=== PATIENT | male | born 1940 | race Caucasian/White ===

== ENCOUNTER 2019-12-06 09:16 | Outpatient (CLI) | payer MEDICARE, SELFPAY ==
[2019-12-06 10:46] LABS: Prostate Specific Antigen 1.3 ng/mL (< OR = 4.0)
== END 2019-12-06 09:17 | disposition home or self-care (01) ==
PROVIDERS: PCP Internal Medicine; Visit Provider Urology
DX: C61 Malignant neoplasm of prostate (principal)
CPT/HCPCS: 36415; 84153

== ENCOUNTER 2020-01-16 12:04 | Outpatient (CLI) | payer MEDICARE, SELFPAY ==
--- NOTE | ~2020-01-16 | XR_ITS ---
EXAMINATION: XR ankle LT min 3V DATE: 01/16/2020 12:33 INDICATION: Left ankle pain post injury TECHNIQUE: Anteroposterior, oblique, mortise, and lateral views of the left ankle were obtained. COMPARISON: None. FINDINGS: Alignment is normal. No fracture. Heterotopic ossicle at the tip of the medial malleolus likely sequ john of chronic deltoid ligament injury. Moderate-sized plantar calcaneal spur and small enthesopathic ossicle at the distal Achilles tendon. Joint spaces are well maintained. Soft tissue swelling about the ankle most prominent over the lateral malleolus. Left ankle joint effusion. IMPRESSION: 1. Left ankle joint effusion and lateral side predominant soft tissue swelling without acute osseous abnormality. Reviewed, dictated and finalized at location B.
== END 2020-01-16 12:05 | disposition home or self-care (01) ==
LOC: CHSIMG 12:06
PROVIDERS: PCP Internal Medicine; Visit Provider Internal Medicine
DX: M25.572 Pain in left ankle and joints of left foot (principal); M25.472 Effusion, left ankle
CPT/HCPCS: 73610

== ENCOUNTER 2020-08-26 05:24 | Emergency (ER) | payer MEDICARE, SELFPAY ==
--- NOTE | ~2020-08-26 | CT_ITS ---
EXAMINATION: CT abdomen pelvis wo con EXAM DATE: 08/26/2020 07:08 INDICATION: Right flank pain. TECHNIQUE: Spiral CT of the abdomen and pelvis was performed without contrast. Axial, coronal and sag ittal images were reviewed. The dose-length product (DLP) for this examination was 1521.15 mGy-cm. The exposure was tailored according to patient size (auto mA exposure control), and iterative reconst ruction (ASIR) was used as additional dose reduction technique. There is no prior study for comparis on. FINDINGS: There is no nephrolithiasis or hydronephrosis. Prostate unremarkable. The bladder is unr emarkable. The liver, spleen, adrenal glands and pancreas are unremarkable. Gallbladder not identif ied, patient likely has had cholecystectomy. There is no retroperitoneal or pelvic lymphadenopathy. There is mild to moderate scattered arteriosclerotic disease. Several supraumbilical fat-containing hernias in paracentral locations, largest toward the right measuring up to 6.5 cm. No inflammation w ithin these. The appendix is normal. There is extensive sigmoid predominant colonic diverticulosis. There is no a djacent inflammatory change to suggest diverticulitis. There is small to moderate-sized gastroesophag eal hiatal hernia. There is expected amount of colonic stool. No free intraperitoneal gas. The h eart is normal in size. There are no pericardial or pleural effusions. The lung bases are unremarka ble. There are no osteoblastic or osteolytic lesions identified. Sternotomy wires. IMPRESSION: 1. No nephrolithiasis, hydronephrosis or acute intra-abdominal findings. 2. Small to moderate-sized hiatal hernia. 3. Supraumbilical fat-containing hernias. 4. Colonic diverticulosis Reviewed, dictated and finalized at location A.
[2020-08-26 05:59] VITALS: BP 125/46; PULSE 61; RESP 20; TEMP 36.1; O2SAT 91
--- NOTE | 2020-08-26 06:25 | ED.BACK ---
HPI - Back Pain/Injury General Chief Complaint: Back Pain/Injury Stated Complaint: Right Back Pain Time Seen by Provider: 08/26/20 06:44 Source: patient Mode of arrival: ambulatory Limitations: no limitations History of Present Illness HPI Narrative: this is a 80-year-old gentleman that presents with some right flank pain, more spasm like pain but it is sharp in nature and radiating into his right groin and right leg, has a history of prostate cancer hypertension currently not having any dysuria no hematuria no nausea vomiting pain level is about an 8/10 with no diarrhea or constipation. MD elicited complaint: back pain Pertinent past history: prior back pain Onset (ago): hour(s) Timing: constant Severity: moderate Pain scale (0-10): 8 Similar Symptoms Previously: Yes Quality: sharp and spasming Location: right flank Radiation: groin Exacerbating factors: movement Relieving factors: immobilization Related Data Home Medications Medication Instructions Recorded Confirmed atorvastatin 80 mg PO DAILY 08/26/20 08/26/20 lisinopril 10 mg PO DAILY 08/26/20 08/26/20 metoprolol tartrate 25 mg PO DAILY 08/26/20 08/26/20 Allergies Allergy/AdvReac Type Severity Reaction Status Date / Time No Known Allergies Allergy Verified 08/26/20 06:46 Review of Systems Review of Systems: All systems reviewed & are unremarkable except as noted in HPI and below PMFSH Past Medical History Medical History (Updated 08/27/20 @ 00:00 by Background Dapam) HTN (hypertension) Prostate cancer Family History Family History (Updated 08/26/20 @ 22:56 by Bolivar Parekh MD) Other Family history non-contributory Social History Social History (Updated 08/26/20 @ 22:56 by Bolivar Parekh MD) Living arrangements: alone Additional occupation/education comments: 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 Exam Const: General: no acute distress and alert Orientation/consciousness: patient oriented x3 HENMT: Head: normal to inspection Eyes: Conjunctivae: conjunctivae normal Pupils: Equal, round and reactive pupils present Neck: Neck: normal visual inspection, no lymphadenopathy and no meningeal signs Chest: Chest palpation & inspection: normal inspection of the chest Resp: Effort & Inspection: normal respiratory effort Auscultation: clear to auscultation bilaterally Cardio: Rate: regular rate Rhythm: regular rhythm GI: Auscultation: normal bowel sounds : Testes: Testes normal ( slow stream) Urinary Catheter: Urinary Catheter: urine clear Back/Spine/Pelvis: Back: CVA tenderness ( right flank pain) Skin: General skin exam: normal color Rashes: no rashes Neuro: General: patient oriented x3 and moves all extremities Extrem: General: normal to inspection and no pedal edema Psych: Appearance: grossly normal Mental Status: mental status grossly normal Affect: normal affect Course Course Emergency Course: patient received IV Toradol and awaiting blood work and CT scan without contrast of abdomen pelvis. Vital Signs Vital signs: Vital Signs Temperature 36.1 C L 08/26/20 05:59 Pulse Rate 61 08/26/20 05:59 Respiratory Rate 20 08/26/20 05:59 Blood Pressure 125/46 L 08/26/20 05:59 Pulse Oximetry 91 08/26/20 05:59 Temperature 36.1 C L 08/26/20 05:59 Pulse Rate 63 08/26/20 10:50 Respiratory Rate 18 08/26/20 10:50 Blood Pressure 171/59 H 08/26/20 10:50 Pulse Oximetry 95 08/26/20 10:50 MDM - Back Pain/Injury Lab Data Result diagrams: 08/26/20 06:26 08/26/20 06:26 Labs: Lab Results 08/26/20 08/26/20 08/26/20 Range/Units 06:26 06:26 08:50 WBC 8.0 (4.8-10.8) K/mm3 RBC 4.30 L (4.70-6.10) M/mm3 Hgb 13.4 (12.4-15.3) g/dL Hct 40.8 (37.0-46.0) % MCV 94.9 (78.0-102.0) fL MCH 31.2 H (27.0-31.0) pg MCHC 32.8 (32.0-36.0) g/dL RDW 13.9 (11.6-14.4) % Plt Count 248 (150-420) K/mm3 MPV 10.7 (8.7-11.0) fl Immat
[2020-08-26] MEDS: KETOROLAC 30 MG/ML VIAL (*BKC) IV PUSH (06:35)
[2020-08-26 06:36] LABS: Basophils Absolute Auto 0.05 K/mm3 (0.00-0.10); Basophils Percent Auto 0.6 % (0.0-1.0); Eosinophils Absolute Auto 0.47 K/mm3 (0.02-0.50); Eosinophils Percent Auto 5.9 % (1.0-6.0); Hematocrit 40.8 % (37.0-46.0); Hemoglobin 13.4 g/dL (12.4-15.3); Immature Granulocyte Absolute 0.02 K/mm3 (0.00-0.00); Immature Granulocyte Percent A 0.3 % (0.0-0.0); Lymphocytes Absolute Auto 1.86 K/mm3 (1.10-4.50); Lymphocytes Percent Auto 23.3 % (18.0-42.0); Mean Corpuscular HGB Conc 32.8 g/dL (32.0-36.0); Mean Corpuscular Hemoglobin 31.2 pg (27.0-31.0); Mean Corpuscular Volume 94.9 fL (78.0-102.0); Mean Platelet Volume 10.7 fl (8.7-11.0); Monocytes Absolute Auto 0.65 K/mm3 (0.10-0.90); Monocytes Percent Auto 8.1 % (2.0-11.0); Neutrophils Absolute Auto 4.9 K/mm3 (1.7-7.2); Neutrophils Percent Auto 61.8 % (50.0-70.0); Platelet Count Result 248 K/mm3 (150-420); Red Cell Distribution Width 13.9 % (11.6-14.4)
[2020-08-26] MEDS: SODIUM CHLORIDE 0.9% IV 500 ML 999 ML IV CONT (06:44)
[2020-08-26 06:49] LABS: Alanine Aminotransferase 29 U/L (16-63); Albumin Level 3.3 g/dL (3.4-5.0); Alkaline Phosphatase 105 U/L (46-116); Anion Gap 7 mmol/L (8-16); Aspartate Amino Transferase 19 U/L (15-37); Bilirubin,Total 0.4 mg/dL (0.00-1.00); Blood Urea Nitrogen 27 mg/dL (7-18); Calcium 9.3 mg/dL (8.5-10.1); Carbon Dioxide 30 mmol/L (21-32); Chloride 103 mmol/L (98-108); Estimated CRCL calculation 65 ml/min; Estimated Glomerular Filt Rate 57; Glucose 113 mg/dL (70-99); Osmolality Calculated 296 mOsm/kg (285-295); Potassium 4.8 mmol/L (3.5-5.1); Sodium 140 mmol/L (136-145); Total Protein 6.9 g/dL (6.4-8.2)
[2020-08-26] MEDS: BACLOFEN 10 MG TABLET 20 MG PO (07:19)
[2020-08-26 08:58] LABS: Add Urine Microscopic? NO; Appearance Urine Clear (Clear); Bilirubin Urine Negative (Negative); Blood Urine Negative (Negative); Color Urine Yellow (Yellow); Glucose Urine UA Negative (Negative); Ketones Urine Negative (Negative); Leukocyte Esterase Ur Negative LEU/UL (Negative); Nitrate Urine Negative (Negative); Protein Urine Negative (Negative); Urobilinogen Urine 0.2 mg/dL (0.2-1.0)
[2020-08-26] MEDS: HYDROcodone/acetaminophen (*CRX) 7.5-325 MG TABLET 1 TAB PO (09:00)
[2020-08-26] MEDS: DEXAMETHASONE 4 MG TABLET 12 MG PO (09:00)
--- NOTE | 2020-08-26 10:33 | ED.BACK ---
HPI - Back Pain/Injury General Chief Complaint: Back Pain/Injury Stated Complaint: Right Back Pain Time Seen by Provider: 08/26/20 06:44 Source: patient Mode of arrival: ambulatory Limitations: no limitations History of Present Illness HPI Narrative: Patient comes in stating he has had back pain which has affected the right side more severely, with spasms in right leg. He points to SI joint, as a source of pain and his right flank area. He denies fever and chills. Pain in right flank has been moderately severe, with sharp pain, ongoing for the past several days, but worse today. This has not been relieved by measures taken at home. MD elicited complaint: back pain Pertinent past history: prior back pain Onset (ago): day(s) Timing: constant Severity: moderate Similar Symptoms Previously: Yes Quality: sharp and spasming Exacerbating factors: movement Relieving factors: immobilization Associated symptoms: denies other symptoms Related Data Home Medications Medication Instructions Recorded Confirmed atorvastatin 80 mg PO DAILY 08/26/20 08/26/20 lisinopril 10 mg PO DAILY 08/26/20 08/26/20 metoprolol tartrate 25 mg PO DAILY 08/26/20 08/26/20 Allergies Allergy/AdvReac Type Severity Reaction Status Date / Time No Known Allergies Allergy Verified 08/26/20 06:46 Review of Systems Constitutional: Constitutional: Reports no additional constitutional complaints Eyes: Eyes: Reports no additional eye complaints ENT: Reports system reviewed and no additional complaints, except as documented Cardiovascular: Cardiovascular: Reports no additional cardiovascular complaints Respiratory: Respiratory: Reports no additional respiratory complaints Gastrointestinal: Gastrointestinal: Reports no additional gastrointestinal complaints Genitourinary: Genitourinary: Reports no additional male genitourinary complaints Musculoskeletal: Musculoskeletal: Reports no additional musculoskeletal complaints Integumentary/Breasts: Skin/Breast: Reports system reviewed and no additional complaints, except as docu Neurologic: Reports system reviewed and no additional complaints, except as documented Psychiatric: Psychiatric: Reports no additional psychiatric complaints Endocrine: Endocrine: Reports no additional endocrine complaints Hematologic/Lymphatic: Hematologic/Lymphatic: Reports no additional hematologic/lymphatic complaints Allergic/Immunologic: Allergic/Immunologic: Reports no additional allergic/immunologic complaints [facility] Past Medical History Medical History (Updated 08/26/20 @ 22:57 by Bolivar Parekh MD) HTN (hypertension) Prostate cancer Family History Family History (Updated 06/06/21 @ 22:56 by Bolivar Parekh MD) Other Family history non-contributory Social History Social History (Updated 08/26/20 @ 22:56 by Bolivar Parekh MD) Living arrangements: alone Additional occupation/education comments: 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 Exam Const: General: no acute distress and alert Orientation/consciousness: patient oriented x3 HENMT: Head: normal to inspection Ears: external ears normal General nose exam: Normal external nose present Mouth: Yes Normal oral and palatal mucosa present Throat: posterior oropharynx normal Eyes: Conjunctivae: conjunctivae normal Neck: Neck: normal visual inspection Chest: Chest palpation & inspection: normal inspection of the chest Resp: Effort & Inspection: normal respiratory effort Auscultation: clear to auscultation bilaterally Cardio: Rate: regular rate Rhythm: regular rhythm GI: GI Palp: Yes Soft to palpation (nontender) Back/Spine/Pelvis: Back: no CVA tenderness Skin: General skin exam: normal color Neuro: General: patient oriented x3 and moves all extremities Extrem: General: normal to inspection Psych: Appearance: grossly normal Mental Status: mental status grossly normal Thought content: Yes Normal thought content present Course Cou
[2020-08-26 10:50] VITALS: BP 171/59; PULSE 63; RESP 18; O2SAT 95
== END 2020-08-26 10:57 | disposition home or self-care (01) ==
PROVIDERS: Emergency Medicine; Emergency Provider Emergency Medicine; PCP Internal Medicine
DX: M54.41 Lumbago with sciatica, right side (principal); I10 Essential (primary) hypertension; Z85.46 Personal history of malignant neoplasm of prostate
CPT/HCPCS: 36415; 74176; 80053; 81003; 85025; 96361; 96374; 99283; 99284; A9270; J1885; J7040; J8540

== ENCOUNTER 2020-09-03 10:24 | Outpatient (CLI) | payer MEDICARE, SELFPAY ==
--- NOTE | ~2020-09-03 | XR_ITS ---
XR lumbar spine 2-3V DATE: 09/03/2020 10:49 INDICATION: Back pain for 2 weeks TECHNIQUE: AP, lateral, coned lateral lumbosacral views COMPARISON: 06/14/2018 lumbar spine FINDINGS: There is prominent degenerative spurring throughout the included lower thoracic and lumbar spine. There is severe degenerative disc disease at L1-2, L2-3 and L3-4. There is grade 1 anterolisthesis at L5-S1 apparently due to degenerative change at the apophyseal kristi nts. No fracture or bone destruction is evident. Is extensive calcification of the abdominal aorta and iliac arteries without obvious evidence of aneu rysm. IMPRESSION: Extensive lower thoracic and lumbar spondylosis Grade 1 anterolisthesis at L5-S1 due to degenerative change at the apophyseal joints Reviewed, dictated and finalized at location A. IMPRESSION: Extensive lower thoracic and lumbar spondylosis Grade 1 anterolisthesis at L5-S1 due to degenerative change at the apophyseal j nubia
== END 2020-09-03 10:25 | disposition home or self-care (01) ==
LOC: CHSIMG 10:26
PROVIDERS: PCP Internal Medicine; Visit Provider Internal Medicine
DX: M54.9 Dorsalgia, unspecified (principal)
CPT/HCPCS: 72100

== ENCOUNTER → 2020-12-13 13:26 | Outpatient (CLI) | payer MEDICARE, SELFPAY ==
--- NOTE | ~2020-12-13 | MR_ITS ---
EXAMINATION: MR lumbar spine wo con DATE: 12/13/2020 14:15 INDICATION: Low back pain. TECHNIQUE: Magnetic resonance imaging (MRI) of the lumbar spine was performed without intravenous con trast. Sequences included sagittal T2-weighted FSE, sagittal T2-weighted FS FSE, sagittal T1-weighted FSE, and axial T2-weighted FSE. COMPARISON: Lumbar spine radiograph 09/03/2020 FINDINGS: There is 3 degrees levocurvature of lumbar spine. There is 4 mm retrolisthesis of L2 on L3 and 6 mm retrolisthesis of L3 on L4. There is 6 mm anterolisthesis of L5 on S1. There is mild chronic anterior wedging of T11, T12, and L1 vertebral bodies. There is mildly decreased disc height at L1-L 2, moderately decreased disc height at L2-L3 and L3-L4, and mildly decreased disc at L5-S1 with endpl ate remodeling. The distal spinal cord signal intensity is normal. The conus medullaris is at L1. The following disc levels are specifically discussed: L1-L2: The disc is bulging and has an annular fissure. There is severe bilateral facet joint osteoart hritis. There is mild right neural foraminal stenosis. There is mild central canal stenosis. L2-L3: The disc is bulging and has an annular fissure. There is moderate bilateral facet joint osteoa rthritis. There is moderate right and mild left neural foraminal stenosis. There is mild central geovany l stenosis. L3-L4: There is bulging and has an annular fissure. There is severe bilateral facet joint osteoarthri tis. There is moderate right and severe left neural foraminal stenosis. There is mild central canal s tenosis. L4-L5: The disc is bulging. There is severe bilateral facet joint osteoarthritis. There is mild bilat eral neural foraminal stenosis. There is mild central canal stenosis. L5-S1: The disc is bulging and has an annular fissure. There is severe bilateral facet joint osteoart hritis. There is moderate right and mild left neural foraminal stenosis. There is mild central canal stenosis. IMPRESSION: 1. Severe lumbar spondylosis. Reviewed, dictated and finalized at location A.
== END ==
PROVIDERS: PCP Internal Medicine; Visit Provider Internal Medicine
DX: M54.5 Low back pain (principal); M47.816 Spondylosis without myelopathy or radiculopathy, lumbar region
CPT/HCPCS: 72148

== ENCOUNTER 2023-04-24 11:53 | Emergency (ER) | payer MEDICARE, SELFPAY ==
[2023-04-24] VITALS (25 sets, daily range): BP systolic 134–186; BP diastolic 70–95; PULSE 63–73; RESP 20; TEMP 36.6; O2SAT 90–100
--- NOTE | ~2023-04-24 | CT_ITS ---
EXAMINATION: CT brain wo con DATE: 04/24/2023 12:25 INDICATION: Dizziness TECHNIQUE: Computed tomography (CT) of the head was performed without intravenous contrast. The mA wa s adjusted according to patient size. Iterative reconstruction technique was employed. Exam dose: 68 1.00 mGy-cm total exam DLP. COMPARISON: None FINDINGS: Bilateral vertebral artery calcifications and prominent bilateral carotid siphon internal c arotid artery calcifications. Very small right cerebellar hemispheric old infarct. No intracranial mass lesion or hemorrhage or cerebrovascular accident, midline shift or mass effect i s detected. Normal ventricular size. No subdural or epidural hematoma is detected. No fracture or bone destruction of the cranial vault. The mastoid air cells and included paranasal si nuses are unremarkable except for mucoperiosteal thickening at the right frontoethmoid area and patch y opacification of right ethmoid air cells. IMPRESSION: Cerebral atherosclerosis Very small right cerebellar hemispheric infarct Right frontoethmoid sinus disease Reviewed, dictated and finalized at Location A. Reviewed, dictated and finalized at location B. 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
--- NOTE | ~2023-04-24 | CT_ITS ---
EXAMINATION: CTA brain carotid DATE: 04/24/2023 14:36 INDICATION: Dizziness. TECHNIQUE: Computed tomographic angiography (CTA) of the head was performed with 100 mL Omnipaque-350 intravenous contrast. CTA of the neck was performed with intravenous contrast. Automated exposure co ntrol and iterative reconstruction technique were employed. The dose-length product was 1219.10 mGy-c m. Maximum intensity projection and volume rendered 3D-reconstructions were created by the [employer]apadi st on a separate workstation. COMPARISON: Head CT 04/24/2023 FINDINGS: HEAD CTA: There is no intracranial hemorrhage, acute infarction, or abnormal intracranial mass lesion . The ventricles are normal in size. There is mucosal thickening in the paranasal sinuses. The orbits are normal. The mastoid air cells are normal. The vertebral arteries are codominant. There is no sig nificant stenosis of basilar artery or the posterior cerebral arteries. The posterior communicating a rteries are normal. There is no significant stenosis of the intracranial internal carotid arteries or anterior or middle cerebral arteries. Anterior communicating artery is normal. There is no aneurysm. NECK CTA: Calcified mediastinal lymph nodes are consistent with old granulomatous disease. There are no pathologically enlarged lymph nodes. 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 There is plaque in the proximal internal carotid arteries. There is 33% stenosis of the proximal right internal carotid artery relative to normal distal artery lumen diameter (NASCET criteria). There is 17% stenosis of the proximal left internal carotid artery relative to normal dis marie artery lumen diameter. There is severe cervical spondylosis. IMPRESSION: 1. Normal brain. 2. No aneurysm or significant intracranial arterial stenosis. 3. 33% stenosis of the proximal right internal carotid artery relative to normal distal artery lumen diameter (NASCET criteria). 4. 17% stenosis of the proximal left internal carotid artery relative to normal distal artery lumen d iameter. Reviewed, dictated and finalized at location A. ERCIAL DECORATOR IMPRESSION: 1. Normal brain. 2. No aneurysm or significant intracranial arterial stenosis. 3. 33% stenosis of the proximal right internal carotid artery relative to vane l distal artery lumen diameter (NASCET criteria). 4. 17% stenosis of the proximal left internal carotid artery relative to normal distal artery lumen diameter.
--- NOTE | ~2023-04-24 | XR_ITS ---
XR chest 1V portable DATE: 04/24/2023 12:25 INDICATION: Dizziness TECHNIQUE: Portable upright AP views on April 24, 2023 at 1225 and 1226 hours COMPARISON: 08/26/2020 CT abdomen pelvis FINDINGS: Status post sternotomy. Cardiomegaly. Aortic calcification. Retrocardiac double density suggests moderately prominent hiatal hernia. This is confirmed upon revie w of 08/26/2020 CT abdomen pelvis. Calcified azygous nodes consistent with old pulmonary granulomatous disease. There is mild elevation right leaf of the diaphragm and suggestion of minimal infiltrate or atelectas is at the lung bases. The lungs otherwise appear clear. Probable bilateral chronic rotator cuff atrophy. Osteopenia. Degenerative spurring of the thoracic sp ine. IMPRESSION: Cardiomegaly Aortic atherosclerosis Status post sternotomy Mild elevation right diaphragm Mild infiltrate or atelectasis at the lung bases Reviewed, dictated and finalized at location B. HOLOGICAL EXAMINER
--- NOTE | 2023-04-24 11:55 | ED.DIZZY ---
HPI - Dizziness General Chief Complaint: Dizziness Stated Complaint: dizziness Time Seen by Provider: 04/24/23 11:54 Source: patient and family Mode of arrival: ambulatory Limitations: no limitations History of Present Illness HPI Narrative: patient is an 82-year-old male with dizziness that started at 8:15 a.m. this morning. By the time the CT scan shows infarction it was passed window for tPA. It is a small infarction and cerebellar in nature. 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 Fast exam is negative. [place] coma Score is 15. Unsteady gait due to the dizziness. 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 patient missed his MRI this morning for inner ear problems. patient had some dizziness last week that resolved on its own. MD elicited complaint: dizziness Pertinent past history: inner ear problems Onset (ago): hour(s) ( 8:15 a.m. last known well) Timing: sudden onset Severity: moderate Description: sense of movement and off-balance Context: at rest History of similar symptoms: Yes ( patient has been having inner ear problems and had an MRI today planned) Exacerbating factors: nothing Relieving factors: nothing Associated symptoms: nausea and vomiting Associated neuro symptoms: limb ataxia Related Data Home Medications Medication Instructions Recorded Confirmed metoprolol tartrate 25 mg tablet 25 mg PO DAILY 08/26/20 04/24/23 amlodipine 2.5 mg-benazepril 10 mg 1 cap PO DAILY 04/24/23 04/24/23 capsule aspirin 81 mg tablet,delayed 81 mg PO DAILY 04/24/23 04/24/23 release atorvastatin 20 mg tablet 20 mg PO DAILY 04/24/23 04/24/23 semaglutide 14 mg tablet (Rybelsus) 14 mg PO DAILY 04/24/23 04/24/23 vitamins A,C,Z-kxfa-xrcaec 4,296 1 cap PO BID 04/24/23 04/24/23 mcg-226 mg-90 mg capsule (PreserVision AREDS) Allergies Allergy/AdvReac Type Severity Reaction Status Date / Time No Known Allergies Allergy Verified 04/24/23 12:02 Review of Systems Review of Systems: All systems reviewed & are unremarkable except as noted in HPI and below Constitutional: Constitutional: Reports no additional constitutional complaints Eyes: Eyes: Reports no additional eye complaints ENT: Reports system reviewed and no additional complaints, except as documented Cardiovascular: Cardiovascular: Reports no additional cardiovascular complaints Respiratory: Respiratory: Reports no additional respiratory complaints Gastrointestinal: Gastrointestinal: Reports no additional gastrointestinal complaints Genitourinary: Genitourinary: Reports no additional male genitourinary complaints Musculoskeletal: Musculoskeletal: Reports no additional musculoskeletal complaints Integumentary/Breasts: Skin/Breast: Reports system reviewed and no additional complaints, except as docu Neurologic: Reports system reviewed and no additional complaints, except as documented Psychiatric: Psychiatric: Reports no additional psychiatric complaints Endocrine: Endocrine: Reports no additional endocrine complaints Hematologic/Lymphatic: Hematologic/Lymphatic: Reports no additional hematologic/lymphatic complaints Allergic/Immunologic: Allergic/Immunologic: Reports no additional allergic/immunologic complaints PMFSH Past Medical History Medical History HTN (hypertension) Prostate cancer Family History Family History Other Family history non-contributory Social History Social History Living arrangements: alone Additional occupation/education comments: 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
--- NOTE | 2023-04-24 11:56 | ECG_ITS ---
Measurements Intervals [place] Rate: 58 P: 10 MS: 145 QRS: -57 QRSD: 202 T: 3 QT: 444 QTc: 438 Interpretive Statements SINUS BRADYCARDIA RIGHT BUNDLE BRANCH BLOCK [120+ ms QRS DURATION, UPRIGHT V1, 40+ ms S IN I/aVL/V4/V5/V6] LEFT ANTERIOR FASCICULAR BLOCK [QRS AXIS <= -45, QR IN I, RS IN II] POSSIBLE LEFT VENTRICULAR HYPERTROPHY [VOLTAGE CRITERIA PLUS LAE OR QRS WIDENING] ABNORMAL ECG NO PREVIOUS ECG AVAILABLE FOR COMPARISON Electronically Signed On 04-24-2023 14:05:09 DESIGN LEADER by Bandar Oviedo M.D.
[2023-04-24 12:12] LABS: Basophils Absolute Auto 0.03 K/mm3 (0.00-0.10); Basophils Percent Auto 0.3 % (0.0-1.0); Eosinophils Absolute Auto 0.02 K/mm3 (0.02-0.50); Eosinophils Percent Auto 0.2 % (1.0-6.0); Hematocrit 41.1 % (37.0-46.0); Hemoglobin 13.8 g/dL (12.4-15.3); Immature Granulocyte Absolute 0.07 K/mm3 (0.00-0.00); Immature Granulocyte Percent A 0.6 % (0.0-0.0); Lymphocytes Absolute Auto 0.95 K/mm3 (1.10-4.50); Lymphocytes Percent Auto 8.2 % (18.0-42.0); Mean Corpuscular HGB Conc 33.6 g/dL (32.0-36.0); Mean Corpuscular Hemoglobin 30.8 pg (27.0-31.0); Mean Corpuscular Volume 91.7 fL (78.0-102.0); Mean Platelet Volume 10.1 fl (8.7-11.0); Monocytes Absolute Auto 0.33 K/mm3 (0.10-0.90); Monocytes Percent Auto 2.8 % (2.0-11.0); Neutrophils Absolute Auto 10.2 K/mm3 (1.7-7.2); Neutrophils Percent Auto 87.9 % (50.0-70.0); Platelet Count Result 255 K/mm3 (150-420); Red Blood Count 4.48 M/mm3 (4.70-6.10); Red Cell Distribution Width 13.3 % (11.6-14.4); White Blood Count 11.6 K/mm3 (4.8-10.8)
[2023-04-24 12:33] LABS: Alanine Aminotransferase 28 U/L (16-63); Albumin Level 3.3 g/dL (3.4-5.0); Alkaline Phosphatase 100 U/L (46-116); Anion Gap 13 mmol/L (8-16); Aspartate Amino Transferase 18 U/L (15-37); Bilirubin,Total 0.6 mg/dL (0.00-1.00); Blood Urea Nitrogen 28 mg/dL (7-18); Calcium 9.4 mg/dL (8.5-10.1); Carbon Dioxide 24 mmol/L (21-32); Chloride 103 mmol/L (98-108); Estimated Glomerular Filt Rate > 60; Glucose 156 mg/dL (70-99); Osmolality Calculated 298 mOsm/kg (285-295); Potassium 4.3 mmol/L (3.5-5.1); Sodium 140 mmol/L (136-145); Total Protein 7.7 g/dL (6.4-8.2); Troponin I 12.4 ng/L (0.00-60.4)
[2023-04-24 12:48] LABS: SARS-CoV-2 RNA PCR Negative (Negative)
[2023-04-24 12:49] LABS: Influenza A QL RT-PCR Negative (Negative); Influenza B QL RT-PCR Negative (Negative); RSV RNA, RT-PCR Negative (Negative)
[2023-04-24] MEDS: ASPIRIN 81 MG CHEWABLE TABLET 324 MG PO (13:49)
== END 2023-04-24 17:25 | disposition short-term general hospital (02) ==
PROVIDERS: Emergency Provider Emergency Medicine; PCP Internal Medicine
DX: I63.9 Cerebral infarction, unspecified (principal); I10 Essential (primary) hypertension; Z79.899 Other long term (current) drug therapy; Z79.82 Long term (current) use of aspirin; Z85.46 Personal history of malignant neoplasm of prostate; Z20.822 Contact with and (suspected) exposure to COVID-19
CPT/HCPCS: 36415; 70450; 70496; 70498; 71045; 80053; 84484; 85025; 87637; 93005; 99285; A9270; Q9967

== ENCOUNTER 2023-04-25 08:54 | Observation (INO) | payer MEDICARE, SELFPAY ==
[2023-04-24 19:00] VITALS: BP 169/82; PULSE 80; RESP 22; TEMP 36.4; O2SAT 100
[2023-04-24 20:00] VITALS: O2SAT 98
--- NOTE | 2023-04-24 20:46 | PM.IMHP ---
H&P: HPI History of Present Illness Date/Time: 04/24/23 20:46 Chief Complaint: Patient brought to the ER for evaluation by his son for dizziness Narrative: Very pleasant 82 years old gentleman was at his home at 8:15 a.m. this morning when he started having dizziness and difficulty ambulating. He was home alone and made it to his recliner and sat in there. He does not report any fall. He also complains of unsteady gait. He had an MRI scheduled this morning for inner ear problems which he missed. His dizziness lasted for an hour or so and resolved on its own. At around 11:15 a.m., he told his son who brought him over to the ER for evaluation. He gives a similar episode last week which resolved on its own. His NIH scale score was very low at 1 due to limb ataxia on presentation to the ER and by that time he has passed the window for tPA. Transferring ER at [place] initially spoke with the neurologist at the [facility] for transfer but they were full. They spoke with our local neurologist for admission who accepted the patient without any need for tPA administration. I saw and examined the patient at the bedside. He feels weak and tired and almost back to his normal functioning. No weakness in his arms or legs. Him and his son had multiple questions which I answered. He is being admitted for brain MRI, PT/OT/ST evaluation and Neurology consult in a.m. Review of Systems Review of Systems: 14 systems were reviewed with pertinent positives and negatives per HPI. Except as documented in the HPI/progress notes, all other systems were reviewed and are negative. 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 Meds Home Medications and Allergies Home Medications Medication Instructions Recorded Confirmed Type metoprolol tartrate 25 mg tablet 25 mg PO DAILY 08/26/20 04/24/23 History amlodipine 2.5 mg-benazepril 10 mg 1 cap PO DAILY 04/24/23 04/24/23 History capsule aspirin 81 mg tablet,delayed 81 mg PO DAILY 04/24/23 04/24/23 History release atorvastatin 20 mg tablet 20 mg PO DAILY 04/24/23 04/24/23 History semaglutide 14 mg tablet (Rybelsus) 14 mg PO DAILY 04/24/23 04/24/23 History vitamins A,C,P-xypw-gcxljf 4,296 1 cap PO BID 04/24/23 04/24/23 History mcg-226 mg-90 mg capsule (PreserVision AREDS) Allergies Allergy/AdvReac Type Severity Reaction Status Date / Time No Known Allergies Allergy Verified 04/24/23 12:02 Exam Narrative: PHYSICAL EXAMINATION: Vital signs: Please see the chart General physical exam: Obese white gentleman, lying in bed, appears to be weak tired and fatigued, pleasant and cooperative with exam Head/eyes: Atraumatic, EOMI, PERRLA ENT: Moist mucous membranes, nasal passages clear Neck: Supple, full range of motion, trachea midline CVS: S1 + S2, regular rate and rhythm, no murmurs Respiratory: Bilaterally fair air entry in both lung [place], mild B/L crackles, symmetric chest expansion, no distress Abdomen: Soft, non-tender, bowel sounds +ve, no organomegaly Extremities: No clubbing, no cyanosis, no edema, no calf tenderness Musculoskeletal: Moves all, adequate range of motion, no muscle spasms Skin: Warm, dry, no jaundice, no cyanosis Neurological: Awake, alert, oriented x 3, cranial nerves II-XII intact, no focal neurological deficits, + mild dizziness on ambulation Psychiatric: Normal mood, non suicidal Assessment and Plan Assessment and plan (1) Acute CVA (cerebrovascular accident): Code(s): I63.9 - Cerebral
[2023-04-24 21:02] VITALS: BP 160/66; PULSE 73; RESP 18; TEMP 36.6; O2SAT 98
[2023-04-24] MEDS: DEXTROSE 5%/0.45% SOD CHL 1,000 ML 100 ML IV CONT (22:54)
[2023-04-25] VITALS (11 sets, daily range): BP systolic 143–170; BP diastolic 59–70; PULSE 60–81; RESP 18–24; TEMP 35.8–36.7; O2SAT 98–100; BMI 36.3
--- NOTE | ~2023-04-25 | MR_ITS ---
EXAMINATION: MR brain/brain stem wo/w con DATE: 04/25/2023 07:15 INDICATION: Acute CVA involving right cerebellum TECHNIQUE: Magnetic resonance imaging (MRI) of the brain and brainstem was performed without and with 20 mL MultiHance intravenous contrast. Sequences included sagittal and axial T1-weighted SE, axial d iffusion-weighted FS EPI ASSET, axial T2*-weighted GRE, axial T2-weighted FLAIR Propeller, and axial T2-weighted Propeller. Postcontrast axial and coronal T1-weighted SE was obtained. Apparent diffusion coefficient (ADC) maps were created. COMPARISON: CT brain and CTA brain carotid 04/24/2023. FINDINGS: No abnormal restricted diffusion to suggest acute ischemic infarct. Focal old right cerebellar infarc ts. No MRI evidence of hemorrhage or extra-axial collection. No suspicious foci of susceptibility to suggest prior intraparenchymal hemorrhage. Minimal scattered foci of white matter hyperintensity, lik renato representing mild small vessel ischemic disease. Very mild generalized parenchymal volume loss. 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 The basilar cisterns are patent. Flow voids are preserved. Right frontal and ethmoid mucosal thickening, the remaining aerated spaces are clear. Globes and orbi marie contents are within normal limits. IMPRESSION: No acute intracranial process detected. Specifically there is no MR evidence of acute infarct. The prior CT brain findings represented focal old right cerebellar infarcts. Reviewed, dictated and finalized at location K. N FISHING GUIDE
[2023-04-25 07:08] LABS: Basophils Percent Auto 0.5 % (0.2-1.2); Eosinophils Absolute Auto 0.2 K/mm3 (0-0.3); Eosinophils Percent Auto 2.6 % (0-4.4); Hematocrit 40.7 % (42.0-52.0); Hemoglobin 13.4 g/dL (14.0-18.0); Immature Granulocyte Absolute 0.02 K/mm3 (0.00-0.031); Immature Granulocyte Percent A 0.3 % (0-0.5); Lymphocytes Percent Auto 28.3 % (18.3-44.2); Mean Corpuscular HGB Conc 32.9 g/dl (32-36); Mean Corpuscular Hemoglobin 31.1 pg (26-34); Mean Corpuscular Volume 94.4 fl (80-100); Mean Platelet Volume 10.6 fl (7.4-10.4); Monocytes Absolute Auto 0.6 K/mm3 (0.1-0.6); Monocytes Percent Auto 8.1 % (2.6-8.5); Neutrophils Absolute Auto 4.5 K/mm3 (1.3-6.7); Neutrophils Percent Auto 60.2 % (45.5-73.1); Platelet Count Result 251 k/mm3 (150-375); Red Blood Count 4.31 M/mm3 (4.6-6.20); Red Cell Distribution Width 13.7 % (11.5-14.5); White Blood Count 7.4 K/mm3 (4.5-10.0)
[2023-04-25 07:36] LABS: Hemoglobin A1C 5.6 % (<5.7)
[2023-04-25 07:40] LABS: LDL Cholesterol Direct 63 mg/dL
[2023-04-25 07:43] LABS: Anion Gap 6 mmol/L (8-16); Blood Urea Nitrogen 23 mg/dL (9-20); Calcium 9.5 mg/dL (8.4-10.2); Carbon Dioxide 28 mmol/L (22-30); Chloride 105 mmol/L (98-107); Cholesterol 117 mg/dL (0-200); Estimated CRCL calculation 82 ml/min; Estimated Glomerular Filt Rate > 60; Glucose 101 mg/dL (65-110); HDL Direct 34 mg/dL; Magnesium 1.9 mg/dL (1.6-2.3); Phosphorus 3.5 mg/dL (2.5-4.5); Sodium 139 mmol/L (137-145); Triglycerides 110 mg/dL (<150)
[2023-04-25 07:50] LABS: Glucose Point of Care 100 mg/dl (65-105)
[2023-04-25 08:09] LABS: Potassium 3.9 mmol/L (3.4-5.0)
[2023-04-25] MEDS: OPTI-GEN TAB 1 TABLET PO (08:45)
[2023-04-25] MEDS: ENOXAPARIN 30 MG/0.3 ML SYRINGE SUB-Q ×2 (08:45→21:45)
[2023-04-25] MEDS: ASPIRIN 81 MG ENTERIC TABLET PO (08:45)
[2023-04-25] MEDS: ATORVASTATIN 20 MG TABLET PO (08:45)
[2023-04-25] MEDS: METOPROLOL TARTRATE 25 MG TABLET PO ×2 (08:45→16:31)
[2023-04-25] MEDS: DEXTROSE 5%/0.45% SOD CHL 1,000 ML 100 ML IV CONT (08:47)
[2023-04-25] MEDS: amLODIPine BESYLATE 2.5 MG TABLET BY MOUTH (08:47)
--- NOTE | 2023-04-25 10:33 | WPDNEURCNPN ---
Assessment and Plan Assessment and plan (1) Dizziness: Code(s): R42 - Dizziness and giddiness Status: Acute (2) HTN (hypertension): Code(s): I10 - Essential (primary) hypertension Status: Acute Plan Rubin Johnson is a 82 year old male with a history of hypertension presenting for evaluation of acute onset dizziness. Initially there was concern for new cerebellar infarct that could have been the cause of his symptoms, but this appears to be chronic. MRI brain obtained to rule out central causes of his symptoms, but no acute stroke noted on my read. Symptoms are likely peripheral in etiology. He also was hypertensive on presentation, which could have also been a contributing factor. - Awaiting final MRI read - Continue Aspirin 81mg daily - Continue Lipitor 20mg daily - Optimize BP - Vestibular therapy Consult date: 04/25/23 Reason for consult: Dizziness HPI: Rubin Johnson is a 82 year old male with a history of hypertension presenting for evaluation of acute onset dizziness. Patient initially presented to [facility] ED yesterday after developing dizziness and trouble walking around 0915. He did not have any focal weakness/numbness, speech deficit, or vision changes. The dizziness lasted for about an hour and then self-resolved. He was supposed to have an MRI brain prior episode dizziness but missed it due to his symptoms. He had a very similar episode last week that also self-resolved. Son told him to go the ER so he presented to [facility]. His blood pressure on presentation was elevated to 180s systolic. CT head shows small R cerebellar stroke, but this appears to be chronic. CTA brain/carotid shows 33% stenosis in proximal R ICA and 17% stenosis in the proximal L ICA. He was transferred to [place] for further evaluation of his symptoms. MRI brain done this AM, which on my read does not show any acute stroke. He already takes a baby aspirin and Lipitor 20mg daily. His LDL from this admission is 63 and A1c is 5.6. Patient reports feeling better today. He describes the sensation of dizziness as room spinning with some lightheadedness and feeling clammy. There is no positional component. He has hearing loss, more on the left compared to the right, and tinnitus in the left ear as well. He denies any double vision. Review of Systems Review of Systems: All systems reviewed & are unremarkable except as noted in HPI and below PMFSH Past Medical History Medical History HTN (hypertension) Prostate cancer Family History Family History Other Family history non-contributory Social History Social History Smoking status: Never smoker Alcohol intake: never Substance use: never Substance use type: does not use Do You Feel Safe in your Home?: Yes Lack of Transportation: No Lack of Food: Never True Current Housing: I Have Housing Concerned About Future Housing: No Difficulty Paying Gas/Electric Bills: No Difficulty Paying for Meds: No Currently Unemployed: No Education: High School Diploma/GED Difficulty w/ Childcare or Family Care: No Living arrangements: alone Additional occupation/education comments: 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
--- NOTE | 2023-04-25 11:10 | PM.IMPN ---
Progress Note: A&P Assessment and Plan (1) Acute CVA (cerebrovascular accident): Code(s): I63.9 - Cerebral infarction, unspecified Status: Inactive Assessment and Plan: CT Scan Head ruled out intracranial hemorrhage Aspirin 324 mg p.o. x1 dose given in the ED CT scan head showed cerebral atherosclerosis with a very small right cerebellar hemispheric infarct CTA head and neck was done which ruled out any significant vascular stenosis or intracranial hemorrhage Neurovascular checks ordered every 4 hours as per TIA/stroke protocol Neuro consulted appreciate recommendation and plan: see below Awaiting final MRI read - Continue Aspirin 81mg daily - Continue Lipitor 20mg daily - Optimize BP - Vestibular therapy (2) HTN (hypertension): Qualifiers: Hypertension type: primary hypertension Qualified Code(s): I10 - Essential (primary) hypertension Code(s): I10 - Essential (primary) hypertension Status: Acute Assessment and Plan: -monitor vitals q 4hrs -continue home medications (3) Ethmoid sinusitis: Qualifiers: Chronicity: chronic Qualified Code(s): J32.2 - Chronic ethmoidal sinusitis Code(s): J32.2 - Chronic ethmoidal sinusitis Status: Acute Assessment and Plan: Patient has right frontal ethmoid sinus disease with the mild leukocytosis -continue Rocephin 1 g IV daily, to be switched to p.o. 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 radiology, investigations and test results reviewed Spoke with patient/Son at the bedside and answered all the questions that they had Subjective Date/time seen: 04/25/23 11:10 Interval history: Narrative: Very pleasant 82 years old gentleman was at his home at 8:15 a.m. this morning when he started having dizziness and difficulty ambulating.? He was home alone and made it to his recliner and sat in there. He does not report any fall.? He also complains of unsteady gait.? He had an MRI scheduled this morning for inner ear problems which he missed.? His dizziness lasted for an hour or so and resolved on its own.? At around 11:15 a.m., he told his son who brought him over to the ER for evaluation.? He gives a similar episode last week which resolved on its own. His NIH scale score was very low at 1 due to limb ataxia on presentation to the ER and by that time he has passed the window for tPA.? Transferred from ER at [place] initially spoke with the neurologist at the [facility] for transfer but they were full. They spoke with our local neurologist for admission who accepted the patient without any need for tPA administration. Interval Hx: 04/25/2023 Pt seen this a.m. he is sitting in the chair, in no acute distress, son is by the bedside. He denies any overnight events. Denies any chest pain, n/v , fever or chills at this time. He admits to mild continued weakness, he denies any ongoing dizziness at this this time. Review of Systems Review of Systems: 14 systems were reviewed with pertinent pos
[2023-04-25 11:18] LABS: Glucose Point of Care 111 mg/dl (65-105)
[2023-04-25 16:34] LABS: Glucose Point of Care 109 mg/dl (65-105)
[2023-04-25 21:38] LABS: Glucose Point of Care 122 mg/dl (65-105)
[2023-04-26] VITALS: PULSE 57
[2023-04-26 00:35] VITALS: BP 174/63; PULSE 61; RESP 18; TEMP 35.7; O2SAT 98
[2023-04-26 04:00] VITALS: PULSE 57
[2023-04-26 04:50] VITALS: BP 145/69; PULSE 62; RESP 18; TEMP 36.6; O2SAT 100
[2023-04-26 07:27] LABS: Anion Gap 5 mmol/L (8-16); Blood Urea Nitrogen 20 mg/dL (9-20); Calcium 9.3 mg/dL (8.4-10.2); Carbon Dioxide 26 mmol/L (22-30); Chloride 104 mmol/L (98-107); Estimated CRCL calculation 92 ml/min; Estimated Glomerular Filt Rate > 60; Glucose 104 mg/dL (65-110); Potassium 3.9 mmol/L (3.4-5.0); Sodium 135 mmol/L (137-145)
[2023-04-26 07:31] LABS: Glucose Point of Care 96 mg/dl (65-105)
[2023-04-26 07:34] LABS: Basophils Percent Auto 0.5 % (0.2-1.2); Eosinophils Absolute Auto 0.3 K/mm3 (0-0.3); Eosinophils Percent Auto 3.9 % (0-4.4); Hematocrit 39.4 % (42.0-52.0); Hemoglobin 12.8 g/dL (14.0-18.0); Immature Granulocyte Absolute 0.02 K/mm3 (0.00-0.031); Immature Granulocyte Percent A 0.3 % (0-0.5); Lymphocytes Absolute Auto 2.18 K/mm3 (0.9-3.2); Mean Corpuscular HGB Conc 32.5 g/dl (32-36); Mean Corpuscular Hemoglobin 31.4 pg (26-34); Mean Corpuscular Volume 96.6 fl (80-100); Mean Platelet Volume 11.1 fl (7.4-10.4); Monocytes Absolute Auto 0.6 K/mm3 (0.1-0.6); Monocytes Percent Auto 8.4 % (2.6-8.5); Neutrophils Absolute Auto 4.4 K/mm3 (1.3-6.7); Neutrophils Percent Auto 57.9 % (45.5-73.1); Platelet Count Result 231 k/mm3 (150-375); Red Blood Count 4.08 M/mm3 (4.6-6.20); White Blood Count 7.5 K/mm3 (4.5-10.0)
[2023-04-26 08:00] VITALS: BP 144/64; PULSE 62; RESP 12; TEMP 35.9; O2SAT 99
[2023-04-26] MEDS: ASPIRIN 81 MG ENTERIC TABLET PO (09:18)
[2023-04-26] MEDS: lisinopriL 10 MG TABLET BY MOUTH (09:18)
[2023-04-26] MEDS: OPTI-GEN TAB 1 TABLET PO (09:18)
[2023-04-26] MEDS: amLODIPine BESYLATE 2.5 MG TABLET BY MOUTH (09:18)
[2023-04-26] MEDS: ATORVASTATIN 20 MG TABLET PO (09:18)
[2023-04-26] MEDS: ENOXAPARIN 30 MG/0.3 ML SYRINGE SUB-Q (09:18)
[2023-04-26 09:20] VITALS: PULSE 68
[2023-04-26] MEDS: METOPROLOL TARTRATE 25 MG TABLET PO (09:20)
[2023-04-26] MEDS: DEXTROSE 5%/0.45% SOD CHL 1,000 ML 100 ML IV CONT (09:22)
[2023-04-26 11:40] LABS: Glucose Point of Care 101 mg/dl (65-105)
--- NOTE | 2023-04-26 11:41 | PM.DS ---
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, unspecified Status: Acute (2) Leukocytosis: Qualifiers: Leukocytosis type: unspecified Qualified Code(s): D72.829 - Elevated white blood cell count, unspecified Code(s): D72.829 - Elevated white blood cell count, unspecified Status: Acute Assessment and Plan: Secondary to ethmoid sinusitis (3) Dizziness: Code(s): R42 - Dizziness and giddiness Status: Acute (4) Ethmoid sinusitis: Qualifiers: Chronicity: chronic Qualified Code(s): J32.2 - Chronic ethmoidal sinusitis Code(s): J32.2 - Chronic ethmoidal sinusitis Status: Acute Assessment and Plan: History of right frontal ethmoid sinus disease with mild leukocytosis -continue Augmentin for 10 days (5) HTN (hypertension): Qualifiers: Hypertension type: primary hypertension Qualified Code(s): I10 - Essential (primary) hypertension Code(s): I10 - Essential (primary) hypertension Status: Acute Assessment and Plan: -continue metoprolol Plan -MRI brain is negative for acute CVA -discussed discharge plan with neurologist who agrees patient can be discharged -will order outpatient echocardiogram with bubble study Explained discharge instructions to patient and daughter who are by the bedside they both agree patient will follow-up outpatient DS: Summary Hospital Course Reason for hospitalization: patient was brought to the ER via private car for evaluation for dizziness fall and unsteady gait. Hospital Course: Patient presented to [facility] ED with complaints having dizziness and difficulty ambulating, along with an unsteady gait. CT Scan Head ruled out intracranial hemorrhage Aspirin 324 mg p.o. x1 dose given in the ED CT scan head showed cerebral atherosclerosis with a very small right cerebellar hemispheric infarct CTA head and neck was done which ruled out any significant vascular stenosis or intracranial hemorrhage Neurovascular checks ordered every 4 hours as per TIA/stroke protocol Neuro consulted appreciate recommendation and plan: see below Awaiting final MRI read - Continue Aspirin 81mg daily - Continue Lipitor 20mg daily - Optimize BP - Vestibular therapy Interval Hx: 04/25/2023?Pt seen this a.m. he is sitting in the chair, in no acute distress, son is by the bedside. He denies any overnight events. Denies any chest pain, n/v , fever or chills at this time. He admits to mild continued weakness, he denies any ongoing dizziness at this this time. 04/26/2023: pt seen this morning he is sitting in the chair denies any overnight events, patient reports he feels much better he is requesting discharge at this time. Status at Discharge Overall status at discharge: patient is progressing back to baseline Time Spent with Patient Time attestation: Total time spent providing and/or coordinating discharge services: Time spent: Less than 30 minutes Exam Narrative: PHYSICAL EXAMINATION: Vital signs: Please see the chart General physical exam: Obese white gentleman, sitting in the chair pleasant and cooperative with exam Head/eyes: Atraumatic, EOMI, PERRLA ENT: Moist mucous membranes, nasal passages clear Neck: Supple, full range of motion, trachea midline CVS: S1 + S2, regular rate and rhythm, no murmurs Respiratory: Bilaterally fair air entry in both lung oviedo, mild B/L crackles, symmetric chest expansion, no distress Abdomen: Soft, non-tender, bowel sounds +ve, no organomegaly Extremities: No clubbing, no cyanosis, no edema, no calf tenderness Musculoskeletal: Moves all, adequate range of motion, no muscle spasms Skin: Warm, dry, no jaundice, no cyanosis Neurological: Awake, alert, oriented x 3, cranial nerves II-XII intact, no focal neurological deficits, + mild dizziness on
--- NOTE | 2023-04-26 12:52 | WPDNEUROPN ---
Subjective Date/time seen: 04/26/23 12:52 Interval history: MRI brain confirmed old R cerebellar infarct. CTA brain/carotid is unrevealing of any posterior circulation stenosis. Recommend surface echocardiogram with bubble study. Per hospitalist this cannot be done till tomorrow. Will keep patient until tomorrow for echo. Continue aspirin and Lipitor. Objective Data Vital Signs Vital Signs: Vital Signs - 24 hr 04/25/23 16:31 04/25/23 16:00 04/25/23 16:00 Temperature 36.7 C Pulse Rate 63 61 68 Respiratory Rate 18 Blood Pressure 170/70 H Pulse Oximetry 99 Oxygen Delivery 04/25/23 21:18 04/25/23 20:00 04/26/23 00:35 Temperature 36.2 C L 35.7 C L Pulse Rate 60 61 61 Respiratory Rate 20 18 Blood Pressure 143/66 H 174/63 H Pulse Oximetry 99 98 Oxygen Delivery 04/26/23 00:00 04/26/23 04:50 04/26/23 04:00 Temperature 36.6 C Pulse Rate 57 L 62 57 L Respiratory Rate 18 Blood Pressure 145/69 H Pulse Oximetry 100 Oxygen Delivery 04/26/23 09:20 04/26/23 08:00 04/26/23 09:20 Temperature 35.9 C L Pulse Rate 68 62 68 Respiratory Rate 12 Blood Pressure 144/64 H Pulse Oximetry 99 Oxygen Delivery 04/26/23 09:20 Temperature Pulse Rate Respiratory Rate Blood Pressure Pulse Oximetry Oxygen Delivery Room Air Intake/Output Intake/Output: Intake & Output 04/23/23 04/24/23 04/25/23 04/26/23 23:59 23:59 23:59 23:59 Intake Total 50 2730 562 Output Total 825 900 Balance 50 7220 -084 Meds/Results Medications: Active Medications Generic Name Dose Route Start Last Admin Trade Name Freq PRN Reason Stop Dose Admin Acetaminophen 650 mg 04/24/23 21:09 Acetaminophen 325 Mg Tablet PO Q4H PRN Mild Pain (1-3) or Fever Al Hydrox/Mg Hydrox/Simethicone 30 ml 04/24/23 21:09 Mag Hydrox/Al Hydrox/Simeth 30 Ml Udc PO QID PRN Dyspepsia Amlodipine Besylate 2.5 mg 04/25/23 09:00 04/26/23 09:18 Amlodipine Besylate 2.5 Mg Tablet BY MOUTH 2.5 mg DAILY LIZ Administration Aspirin 81 mg 04/25/23 09:00 04/26/23 09:18 Aspirin 81 Mg Enteric Tablet PO 81 mg DAILY LIZ Administration Atorvastatin Calcium 20 mg 04/25/23 09:00 04/26/23 09:18 Atorvastatin 20 Mg Tablet PO 20 mg DAILY LIZ Administration Dextrose 12.5 gm 04/25/23 07:33 Dextrose 50% 25 Gm/50 Ml Syringe IV PUSH PRN PRN Hypoglycemia Protocol Enoxaparin Sodium 30 mg 04/25/23 09:00 04/26/23 09:18 Enoxaparin 30 Mg/0.3 Ml Syringe SUB-Q 30 mg Q12HR LIZ Administration Glucagon 1 mg 04/25/23 07:33 Glucagon For Inj 1 Mg Vial IM PRN PRN Hypoglycemia Protocol Glucose 15 gm 04/25/23 07:33 Glucose Oral Gel 15 Gm Of Glucse In 37.5 Gm Tube PO PRN PRN Hypoglycemia Protocol Dextrose/Sodium Chloride 1,000 mls @ 100 mls/hr 04/24/23 21:10 04/26/23 09:22 Dextrose 5% Sodium Chloride 0.45% IV CONT 100 mls/hr .Q10H LIZ Administration Ceftriaxone Sodium 1 gm in 50 mls @ 100 mls/hr 04/24/23 22:00 04/25/23 21:45 Rocephin 1 Gm/Ns 50 Ml IVPB 100 mls/hr Q24H LIZ Administration Dextrose 1,000 mls @ 100 mls/hr 04/25/23 07:33 Dextrose 5% 1,000 Ml IVPB PRN PRN Hypoglycemia Protocol Lisinopril 10 mg 04/26/23 09:00 04/26/23 09:18 Lisinopril 10 Mg Tablet BY MOUTH 10 mg DAILY LIZ Administration Metoprolol Tartrate 25 mg 04/25/23 09:00 04/26/23 09:20 Metoprolol Tartrate 25 Mg Tablet PO 25 mg BID LIZ Administration Multivitamins/Minerals 1 tablet 04/25/23 09:00 04/26/23 09:18 Opti-Gen Tab PO 1 tablet QAM LIZ Administration Non-Formulary Medication 14 mg 04/25/23 09:00 Semaglutide [Rybelsus] PO 05/25/23 08:59 DAILY [facility] Ondansetron HCl 4 mg 04/24/23 20:17 Ondansetron Inj 4 Mg/2 Ml Vial IV PUSH Q6H PRN Nausea And Vomiting Radiology Results: ITS Impressions Brain MRI 04/25/23 13:47 IMPRESSION:
== END 2023-04-26 13:04 | disposition home or self-care (01) ==
PROVIDERS: Student in an Organized Health Care Education/Training Program; Admitting Provider Family Medicine; PCP Internal Medicine; Visit Provider Nurse Practitioner
DX: G11.9 Hereditary ataxia, unspecified (principal); D72.829 Elevated white blood cell count, unspecified; R42 Dizziness and giddiness; J32.2 Chronic ethmoidal sinusitis; I67.2 Cerebral atherosclerosis; I10 Essential (primary) hypertension; E66.9 Obesity, unspecified; Z68.36 Body mass index [BMI] 36.0-36.9, adult; Z86.73 Personal history of transient ischemic attack (TIA), and cerebral infarction without residual deficits; Z79.82 Long term (current) use of aspirin; Z79.84 Long term (current) use of oral hypoglycemic drugs; Z79.899 Other long term (current) drug therapy
CPT/HCPCS: 36415; 70553; 80048; 80061; 82948; 83036; 83735; 84100; 85025; 92523; 92610; 96361; 96365; 96372; 96376; 97161; 97165; A9270; A9577; G0378; J0696; J1650

== ENCOUNTER 2023-05-04 14:10 | Outpatient (CLI) | payer MEDICARE, SELFPAY ==
--- NOTE | 2023-05-04 15:17 | ECHO_ITS ---
Patient Info Name: Rubin Johnson Age: 83 years : 1940 Gender: Male Ht: 71 in Wt: 280 lbs BSA: 2.57 m2 HR: 87 bpm BP: 151 / 75 mmHg Technical Quality: Fair Exam Date: 05/04/2023 3:22 PM Exam Location: Echo Lab Patient Status: Outpatient Admit Date: 05/04/2023 Staff Ordering Physician: Evangelina Godoy APRN Television Anchor: Amanda Vasques RDCS Attending Provider: Markus Troy MD Referring Physician: Evangelina Godoy APRN; Exam Type: CA echo dop bubble study w con Study Info Indications G11.9 - Hereditary ataxia, unspecified Complete two-dimentional, color flow and Doppler transthoracic echocardiogram is performed with agitated saline and with contrast to opacify the left ventricle and to improve the delineation of the left ventricle endocardial borders. Contrast/Agitated Saline Contrast/Ag. Saline: Definity Amount: 2.00 ml Administered By: Alexa Brand RDCS IV Access Condition: patent with no signs of infiltration New IV Access: Left Site Condition: IV removed Summary 1. Left ventricular chamber dimension is normal. 2. Left ventricular systolic function is normal, estimated at 60-65%. 3. There is mildly increased left ventricular wall thickness. 4. The left ventricular diastolic function is grade I diastolic dysfunction. 5. Right ventricular chamber dimension is mildly enlarged. 6. Right ventricular systolic function is normal. 7. Left atrial chamber dimension is moderately enlarged. 8. Right atrial chamber dimension is mildly enlarged. 9. The interatrial septum appears aneurysmal. Karlo study is negative. 10. There is mild mitral valve regurgitation. 11. There is mild tricuspid valve regurgitation. Left Ventricle Left ventricular chamber dimension is normal. Left ventricular systolic function is normal, estimated at 60-65%. There is mildly increased left ventricular wall thickness. The left ventricular diastolic function is grade I diastolic dysfunction. Right Ventricle Right ventricular chamber dimension is mildly enlarged. Right ventricular systolic function is normal. Left Atria Left atrial chamber dimension is moderately enlarged. Right Atria Right atrial chamber dimension is mildly enlarged. Atrial Septum The interatrial septum appears aneurysmal. Karlo study is negative. Aortic Valve The aortic valve is trileaflet. There is no aortic valve stenosis. There is trace aortic valve regurgitation. There is moderate aortic valve calcification. Pulmonic Valve The pulmonic valve is not well visualized. There is trace pulmonic regurgitation. Mitral Valve There is mild mitral valve regurgitation. The mitral valve annulus is mildly calcified. Tricuspid Valve There is mild tricuspid valve regurgitation. Pericardium/Pleural There is no pericardial effusion. Inferior Vena Cava Normal inferior vena cava with >50% collapse upon inspiration consistent with normal right atrial pressure, 3 mmHg. Aorta The aortic root size at the sinus of Valsalva is normal. Left Ventricular Outflow Tract Name Value Normal LVOT 2D LVOT Diameter 2.2 cm LVOT Doppler LVOT Peak Gradient 4 mmHg LVOT Mean Gradien
[2023-05-04] MEDS: PERFLUTREN LIPID MICROSPHERES 1.5 ML VIAL DILUTED TO 10 ML TOTAL VOLUME IV PUSH (16:15)
--- NOTE | 2023-05-04 16:48 | IVDEFINITY ---
Prior to administration of IV Definity the patient was educated on the risks and benefits of the imaging enhancing agent including potential adverse side effects. The patient verbalized understanding. Allergies were verified. No exclusion criteria were identified and at least one of the following inclusion criteria were met: 1) physician request, 2) patient technically difficult to image (per the [place] [employer] guidelines of two or more segments not discernable within the apical view), or 3) questionable left ventricular function. ?
== END 2023-05-04 14:11 | disposition home or self-care (01) ==
PROVIDERS: Referring Provider Nurse Practitioner; Visit Provider Internal Medicine
DX: G45.9 Transient cerebral ischemic attack, unspecified (principal); I25.10 Atherosclerotic heart disease of native coronary artery without angina pectoris; I34.0 Nonrheumatic mitral (valve) insufficiency; I36.1 Nonrheumatic tricuspid (valve) insufficiency
CPT/HCPCS: 96375; C8929; Q9957